=== PATIENT | male | born 2000 | race Caucasian/White ===

== ENCOUNTER 2023-08-17 08:47 | Emergency (ER) | payer BC, MEDICAID, OTHER ==
[~2023-08-17] VITALS: Ht 180.3 cm; Wt 75.3 kg
[~2023-08-17 08:47] MED LIST: ARIP10TA15 PO; COROTSOL OP
[2023-08-17 08:55] VITALS: BP 125/86; PULSE 66; O2SAT 99
[2023-08-17] MEDS ORDERED: TRAM50TA2 PO (10:37)
[2023-08-17 11:09] VITALS: RESP 17; TEMP 98
== END 2023-08-17 11:11 | disposition home or self-care (01) ==
LOC: ER 08:47
DX: M25.561 Pain in right knee (principal); Z79.899 Other long term (current) drug therapy
CPT/HCPCS: 73564; 99283